=== PATIENT | male | born 1980 | race Caucasian/White ===

== ENCOUNTER 2019-10-08 23:19 | Emergency (ER) | payer SELFPAY ==
[~2019-10-08] VITALS: Ht 170.2 cm; Wt 70.3 kg
[2019-10-08 23:22] VITALS: Ht 170.2 cm; Wt 70.3 kg
[2019-10-09 01:25] VITALS: BP 104/59
== END 2019-10-09 03:01 | disposition home or self-care (01) ==
LOC: ED 23:19
DX: J06.9 Acute upper respiratory infection, unspecified (principal); Z20.828 Contact with and (suspected) exposure to other viral communicable diseases; Z98.890 Other specified postprocedural states
CPT/HCPCS: 87804; Q0092